=== PATIENT | female | born 1960 | race Hispanic/Latino ===

== ENCOUNTER 2024-09-08 12:19 | Inpatient (IN) | payer BC ==
[~2024-09-08] VITALS: Ht 160 cm; Wt 67.0 kg
[2024-09-08 12:37] LABS: BASOPHILS # (AUTO) 0.06 K/uL (0.00-0.20); BASOPHILS % (AUTO) 0.5 % (0.0-5.0); EOSINOPHILS % (AUTO) 1.8 % (0.0-8.0); HEMATOCRIT 35.3 % (36-48); IMMATURE GRANULOCYTE ABSOLUTE 0.05 K/uL (0-1); LYMPHOCYTES % (AUTO) 17.5 % (21.0-51.0); MEAN CORPUSCULAR HEMOGLOBIN 30.2 pg (27.0-33.0); MEAN CORPUSCULAR VOLUME 88.7 fL (79-99); MONOCYTES # (AUTO) 0.8 K/uL (0.1-1.0); MONOCYTES % (AUTO) 6.8 % (3.0-13.0); NEUTROPHILS # (AUTO) 8.1 K/uL (1.8-7.7); PLATELET COUNT (AUTO) 216 K/uL (130-400); RED BLOOD CELL COUNT(AUTO) 3.98 MIL/uL (4.00-5.50); RED CELL DISTRIBUTION WIDTH 11.7 % (11.0-15.5); WHITE BLOOD COUNT (AUTO) 11.2 K/uL (4.8-10.8)
--- NOTE | 2024-09-08 12:40 | ERN ---
ED Note History of Present Illness Stated Complaint: CP Chief Complaint: Chest Pain Time Seen by MD: 12:21 Dictation: This 63-year-old female reports onset this morning of severe left-sided body pain including the left arm, the left chest in the left abdomen especially in t he left lower quadrant all of which she attributes to constipation. She reports difficulty with bowel movements for several days and took two laxatives last night. She woke this morning with some pain that worsened quite a bit after she attempted to go to the bathroom shortly before coming in. She arrived at triage very uncomfortable clutching her left arm and clutching abdomen. She had difficulty giving an accurate history initially. She denies nausea vomiting, fall, diarrhea, blood in the stool, shortness of breath, fever or urinary symptoms. The patient denies cigarettes, alcohol and recreational drugs. She is here with her spouse Allergies: Coded Allergies: No Known Drug Allergies (Unverified Allergy, Unknown, 09/08/24) Past Medical History Past Medical History: Hypertension Surgical History: None RN Note Reviewed/Agreed w/PFSH: Yes Review of System Dictation All pertinent systems reviewed, negative except as documented in the HPI The ROS is obtained from patient GENERAL/CONSTITUTIONAL: Negative except as documented in HPI. ENT: Negative except as documented in HPI. CARDIOVASCULAR: Negative except as documented in HPI. RESPIRATORY: Negative except as documented in HPI. GASTROINTESTINAL: Negative except as documented in HPI. GENITOURINARY: Negative except as documented in HPI. MUSCULOSKELETAL: Negative except as documented in HPI. SKIN: Negative except as documented in HPI. NEUROLOGIC: Negative except as documented in HPI. Initial Vital Sign VS Vital Signs Date Time Temp Pulse Resp B/P (MAP) Pulse Ox O2 Delivery O2 Flow Rate FiO2 09/08/24 12:21 98 38 201/66 100 Room Air 0 09/08/24 13:00 98.2 21 Physical Exam Dictation VITAL SIGNS: note is made of triage vital signs CONSTITUTIONAL: This is an extremely anxious woman who is clutching her left arm and seems very weak with limited movement due to primary abdominal pain. She is awake, alert, and appropriately interactive. HEAD: Normocephalic, Atraumatic. EYES: Periorbital areas with no swelling, redness, or edema. Lids and lashes are normal. Conjunctival injection is absent. Sclera anicteric. Pupils equal, round, reactive to light. ENT: No nasal discharge noted. Posterior pharynx is without exudate, redness, swelling, masses, or evidence of obstruction. Uvula midline. Mucous membranes moist. NECK: Trachea midline, no masses palpated, and no cervical lymphadenopathy. No swelling. Supple, full range of motion without nuchal rigidity. No vertebral point tenderness. No meningismus. CHEST/AXILLA: Normal chest wall appearance and motion. No tenderness. No crepitus. CV: Normal rate, regular rhythm. No murmur. No edema. Patient's carotids and radials are strong and equal. RESPIRATORY:Respiratory rate is normal. Bilateral equal breath sounds with good airflow. Normal breath sounds are noted. No rales, rhonchi or wheezes noted. No increased work of breathing, no retractions. ABDOMEN: Inspection normal. No distention is appreciated. Bowel sounds are normal. No mass or organomegaly is appreciated. There is left sided tenderness. No rebound. No rigidity. No voluntary or involuntary guarding. BACK: Inspection is normal. No midline tenderness is appreciated. The patient appears comfortable when moving. : No CVA tenderness or bladder tenderness. SKIN: Warm, dry, with normal turgor. Capillary refill less than 3 seconds. Normal color.No rash. No cellulitis or abscess. No evidence of acute injury. MS/Extremity: There is no calf tenderness. The patient reports severe pain in the left arm with movement and palpation. She has limiting range of motion voluntarily. There are no deformities. NEURO: Awake and alert, lucid. Facies symmetric and speech is clear. Motor strength 5/5 in all extremities. Sensory grossly intact. PSYCH: Patient is very anxious on initial presentation but appropriately attentive and cooperative without evidence of hallucination. Results (Laboratory/Radiology) Laboratory/Radiology Laboratory Tests Test 09/08/24 12:25 09/08/24 13:30 09/08/24 13:55 White Blood Count 11.2 K/uL (4.8-10.8) H Red Blood Count 3.98 MIL/uL (4.00-5.50) L Hemoglobin 12.0 g/dL (12.0-16.0) Hematocrit 35.3 % (36-48) L Mean Corpuscular Volume 88.7 fL (79-99) Mean Corpuscular Hemoglobin 30.2 pg (27.0-33.0) Mean Corpuscular Hemoglobin Concent 34.0 g/dL (32.0-36.0) Red Cell Distribution Width 11.7 % (11.0-15.5) Platelet Count 216 K/uL (130-400) Mean Platelet Volume 12.1 fL (7.5-10.5) H Immature Granulocyte % (Auto) 0.4 % (0-1) Neutrophils (%) (Auto) 73.0 % (40.0-77.0) Lymphocytes (%) (Auto) 17.5 % (21.0-51.0) L Monocytes (%) (Auto) 6.8 % (3.0-13.0) Eosinophils (%) (Auto) 1.8 % (0.0-8.0) Basophils (%) (Auto) 0.5 % (0.0-5.0) Neutrophils # (Auto) 8.1 K/uL (1.8-7.7) H Lymphocytes # (Auto) 2.0 K/uL (1.0-4.8) Monocytes # (Auto) 0.8 K/uL (0.1-1.0) Eosinophils # (Auto) 0.20 K/uL (0.00-0.70) Basophils # (Auto) 0.06 K/uL (0.00-0.20) Absolute Immature Granulocyte (auto 0.05 K/uL (0-1) Nucleated Red Blood Cells 0.0 % (0.0-0.19) Sodium Level 142 mmol/L (136-145) Potassium Level 4.7 mmol/L (3.5-5.1) Chloride Level 105 mmol/L (101-111) Carbon Dioxide Level 27 mmol/L (21-32) Blood Urea Nitrogen 26 mg/dL (7-18) H Creatinine 1.2 mg/dL (0.5-1.0) H Glomerular Filtration Rate Calc 52 mL/min (>90) Random Glucose 183 mg/dL (70-105) H Total Calcium 10.0 mg/dL (8.5-10.1) Total Creatine Kinase 65 U/L (21-232) Troponin I High Sensitivity 6 ng/L (4-50) B-Type Natriuretic Peptide 22 pg/mL (0-100) Stool Occult Blood NEGATIVE (NEGATIVE) Urine Color YELLOW (YELLOW) Urine Appearance CLEAR (CLEAR) Urine pH 6.0 (5.0-8.0) Urine Specific [place] 1.016 (1.001-1.031) Urine Protein 20 mg/dL (NEGATIVE) H Urine Glucose (UA) NEGATIVE mg/dL (NEGATIVE) Urine Ketones 5 mg/dL (NEGATIVE) H Urine Occult Blood NEGATIVE (NEGATIVE) Urine Nitrate NEGATIVE (NEGATIVE) Urine Bilirubin NEGATIVE mg/dL (NEGATIVE) Urine Urobilinogen 0.2 mg/dL (0.2-1.0) Urine Leukocyte Esterase NEGATIVE [place]/uL Urine RBC 2-5 /HPF (0-1) H Urine WBC 2-5 /HPF (0-1) H Urine Squamous Epithelial Cells RARE /HPF (0-2) Urine Bacteria None /HPF (None Seen) Urine Hyaline Casts 2-5 /LPF (0-1 /LPF) H Labs Reviewed?: Yes EKG Comment: Time reviewed: 12:24 p.m. EKG number; 1 Rate and rhythm: Sinus rhythm at 91 beats per minute [place]:normal Morphology:Normal DE interval: normal QT interval: normal ST/Twaves: Diffuse nonspecific STT wave changes Impression: normal sinus rhythm without STEMI or ectopy Comparison EKG: none EKG INTERPRETATION by Dr. Steve Bolden ED Course ED Course Orders Procedure Category Date Status Time Vital Signs Per CPOE 09/08/24 Transmitted Routine 12:25 B-Type Natriuretic LAB 09/08/24 Complete Peptide 12:25 Chest 1vw RAD 09/08/24 Resulted 12:25 12 Lead Ekg Tracing- EKG 09/08/24 Resulted Technical 12:25 Oxygen By Nc/Pulse Ox CPOE 09/08/24 Transmitted 12:25 Maintain Iv CPOE 09/08/24 Transmitted 12:25 Iv Insertion CPOE 09/08/24 Transmitted 12:25 Cardiac Monitoring CPOE 09/08/24 Transmitted 12:25 Pulse Oximetry With CPOE 09/08/24 Transmitted Vs And Prn 12:25 Cbc With Differential LAB 09/08/24 Complete 12:25 Activity: Br W/Brp CPOE 09/08/24 Transmitted With Assist 12:25 Creatine Kinase, Total LAB 09/08/24 Complete 12:25 Urinalysis Profile LAB 09/08/24 Complete 12:25 Troponin Poc Order LAB 09/08/24 Complete Only 12:25 Bedside Troponin-I LAB.ER 09/08/24 In Process (Poc) 12:25 Basic Metabolic Panel LAB 09/08/24 Complete 12:25 Troponin I High LAB 09/08/24 Complete Sensitivity 12:49 Morphine 4mg Syg PHA 09/08/24 Complete (Morphine 4mg Syg) 13:00 Bisacodyl (Dulcolax) PHA 09/08/24 Complete 13:30 Ct Abdomen/Pelvis W/O CT 09/08/24 Resulted Contrast 13:50 Occult Blood Stool LAB 09/08/24 Complete Single Only 14:13 Fleet Order CPOE 09/08/24 Transmitted 14:54 Ct Head/Brain W/O CT 09/08/24 Resulted Contrast 15:52 Current Medications Medications (Trade) Dose Ordered Sig/[place] Route PRN Reason Start Time Stop Time Status Last Admin Dose Admin Bisacodyl (DulcoLAX) 10 mg ONCE ONCE RC 09/08/24 13:30 09/08/24 13:31 DC 09/08/24 13:38 Morphine Sulfate (morPHINE 4MG SYG) 4 mg ONCE ONCE IVP 09/08/24 13:00 09/08/24 13:01 DC 09/08/24 13:03 Vital Signs Date Time Temp Pulse Resp B/P (MAP) Pulse Ox O2 Delivery O2 Flow Rate FiO2 09/08/24 14:28 98.1 78 16 164/72 100 Room Air* 0 21 09/08/24 13:00 98.2 80 16 167/63 98 Room Air* 0 21 09/08/24 12:21 98 38 201/66 100 Room Air 0 HEART Score Response (Comments) Value History: Low suspicion (0) 0 EKG: Repolarization changes 1 Age: 45-65yrs (+1) 1 Risk Factors: 1-2 risk factors (+1) 1 Initial Troponin: Normal limit (0) 0 HEART Score Risk: Low Risk for MACE (1-3) Total 3 Medical Decision Making MDM INITIAL IMPRESSION Initial history and physical concerning for constipation with an unusual presentation of severe left-sided pain including the arm and leg Contributing medical problems: Hypertension I have reviewed the triage nursing notes and vital signs. The patient is afebrile with acceptable oxygen saturation, heart rate and blood pressure. Initial plan: Pain control, laboratory and radiographic evaluation DATA REVIEW I have reviewed additional NN, repeat VS, and monitoring where indicated. Heart rate, blood pressure, and O2 saturation are acceptable. [place] diagnostic results: There was mild leukocytosis. There was mild renal insufficiency. CT scan shows abundant stool Other independent historian: none Review of external data: None. ED COURSE Interventions: The patient has received pain medication and a Dulcolax suppository. Reassessment: Patient is much more comfortable but no bowel movement as yet. Plan to move to two fleets enemas Care is transferred to Dr. Meléndez at 3:00 p.m. for final disposition. DX & DISP Disposition: Inpatient Departure Impression: Primary Impression: Chest pain Additional Impression: Fecal impaction Condition: Stable STEVE BOLDEN MD Sep 08, 2024 12:40 NILTON MELÉNDEZ MD Sep 08, 2024 17:20
[2024-09-08 12:45] LABS: CREATININE 1.2 mg/dL (0.5-1.0); POTASSIUM 4.7 mmol/L (3.5-5.1)
[2024-09-08] MEDS: morPHINE 4 MG SYG IVP ONE (13:03)
--- NOTE | 2024-09-08 13:08 | HMCIMG ---
Exam Type: CHEST 1VW Clinical Information: CHEST PAIN Comparison: None Findings: The lungs are clear of infiltrates. The heart is normal in size. The bony and soft tissue structures of the chest are unremarkable. Impression: Clear lungs.
[2024-09-08 13:28] LABS: B-TYPE NATRIURETIC PEPTIDE 22 pg/mL (0-100)
--- NOTE | 2024-09-08 13:37 | EKG ---
[facility] Test Date: 2024-09-08 Test Time: 12:24:40 Pat Name: GILBERT WHITEHEAD Department: [facility] Room: Gender: F Tow Operator: [id number] : 1960 Requested By: STEVE BOLDEN Order Number: [id number] Reading MD: Marcus Ford Measurements Intervals [place] Rate: 91 P: 73 ME: 121 QRS: 65 QRSD: 91 T: 0 QT: 323 QTc: 398 Interpretive Statements Sinus rhythm Nonspecific repol abnormality, diffuse leads No previous ECG available for comparison Electronically Signed On 09-08-2024 14:10:21 FREIGHT UNLOADER by Marcus Ford Please click the below link to view image of tracing.
[2024-09-08] MEDS: BisaCODYL 10 MG SUPP.RECT RC ONE (13:38)
[2024-09-08 14:24] LABS: APPEARANCE,URINE CLEAR (CLEAR); BILIRUBIN,URINE NEGATIVE (NEGATIVE); COLOR,URINE YELLOW (YELLOW); GLUCOSE, URINE (UA) NEGATIVE (NEGATIVE); KETONES,URINE 5 mg/dL (NEGATIVE); LEUKOCYTE ESTERASE ,URINE NEGATIVE Leu/uL (NEGATIVE); NITRATE,URINE NEGATIVE (NEGATIVE); OCCULT BLOOD,URINE NEGATIVE (NEGATIVE); PROTEIN,URINE 20 mg/dL (NEGATIVE); UROBILINOGEN,URINE 0.2 mg/dL (0.2-1.0)
[2024-09-08 14:26] LABS: ADD UA MICROSCOPIC YES
[2024-09-08 14:42] LABS: MUCUS,URINE RARE LPF (None Seen); SQUAMOUS EPITHELIAL CELL,UR RARE /HPF (0-2)
--- NOTE | 2024-09-08 14:48 | HMCIMG ---
Exam Type: CT ABDOMEN/PELVIS W/O CONTRAST Clinical Information: severe llq p Comparison: None CT Dose Index (CTDI): 10.20 mGy Dose Length Product (DLP): 530.00 total mGy-cm PROTOCOL: Routine noncontrast helical scanning of the abdomen and pelvis was performed at 5mm collimation. Findings: Nonobstructing right nephrolithiasis. Kidneys otherwise unremarkable. The lung bases are clear. Right middle lobe benign calcified granuloma seen. The stomach is unremarkable. It shows no wall thickening. No gross ulceration is seen. It is not overly distended. There are no surrounding inflammatory changes. No wall lesions are identified to suggest cancer. The spleen is unremarkable. It is not enlarged. The pancreas shows normal anatomy. It is not fatty replaced. It shows no lesions. The pancreatic duct is not dilated. The gallbladder is unremarkable. It shows no cholelithiasis. The gallbladder wall is normal in thickness. There is no pericholecystic fluid. The is no acute or chronic inflammation noted. The adrenal glands are unremarkable. There is no enlargement. No lesions are noted. The liver is unremarkable. It shows no focal masses. The appendix is unremarkable. It shows no evidence of inflammation. No appendicolith is seen. The small bowel is unremarkable. There is no evidence of dilatation to suggest obstruction. No evidence of adynamic ileus is seen. There is no small bowel wall thickening to suggest enteritis. Abundant fecal matter is noted throughout the colon consistent with constipation. The urinary bladder is unremarkable. There is no wall thickening to suggest tumor or inflammation. There are no intraluminal calculi. There are no diverticula. There is no evidence of chronic bladder outlet obstruction. There is no evidence of urinary bladder distention to suggest urinary retention. The other pelvic structures are unremarkable. The bony and vascular structures are unremarkable for the patient's age. IMPRESSION: Constipation. This study was performed using dose reduction techniques to include automated exposure control and/or adjustment of the mA and/or kV according to patient size.
--- NOTE | 2024-09-08 16:56 | HMCIMG ---
CT HEAD/BRAIN W/O CONTRAST INDICATION: TIA TECHNIQUE: CT HEAD/BRAIN W/O CONTRAST. CT was performed with one or more of the following dose reduction techniques: Automated exposure control, adjustment of the mA and/or kV according to the patient's size, or use of the iterative reconstruction technique. Comparison: None FINDINGS: The ventricles and extra ventricular CSF spaces are within normal limits. No mass effect, midline shift or herniation. No extra axial collection. No acute intracranial bleed. The visualized paranasal sinuses and mastoid air cells are normally aerated. IMPRESSION: No acute intracranial findings.
[2024-09-08] MEDS ORDERED: ketOROlac 15MG/ML VIAL (15MG/ML) IV PRN (18:00)
[2024-09-08] MEDS ORDERED: acetaMINOPHEN 500 MG TABLET PO PRN (18:00)
--- NOTE | 2024-09-08 18:32 | NUR ---
TWO FLEET ENEMAS ADMINSTERED PER PROVIDER ORDER. PATIENT TOLERATED PROCEDURE WELL. PATIENT LARGE BM ACHIEVED.
[2024-09-08] MEDS: 0.9%NACL 1000ML 1,000 ML IV SCH (18:35)
[2024-09-08] MEDS: CEFTRIAXONE 2GM VIAL IVPB SCH (18:35)
--- NOTE | 2024-09-08 19:06 | HP ---
[facility] Date of Service: Sep 08, 2024 Time of Service: 18:51 HISTORY OF PRESENT ILLNESS: DATE OF SERVICE: 09/08/2024 This is a 63-year-old female past medical history of hypertension, diabetes mellitus type 2 who presented to the hospital secondary to abdominal pain. Patient states she has had episodes of constipation with small bowel movement yesterday. She knows states she has not had regular bowel movements at home. She denies any nausea, vomiting, shortness of breath, fever, chills. She noted that she was having pain in the left upper extremity and left lower extremity. She is not fully able to mobilize her upper or lower extremity. She was clutching her left arm when seen at bedside. She states normally she is able to walk independently and denies using any walker or cane. She denied any falls, syncopal episode. Furthermore she complained of midsternal chest pain that would radiate towards her left arm and left lower extremity. Her pain improved after she received morphine in the ED. She denied any headaches, upper or lower extremity paresthesias. She noted bilateral upper extremity tremors which is something new for her. Noted her symptoms started around 10 in the morning. Additionally she states around one week ago she was taking care of her brother who has been sick in the hospital. She does walk outside and does endorse mosquito bites. Labs were notable for white count of 11.2, hemoglobin was 12.0, platelet count was 216k, sodium was 142, potassium was 4.7, creatinine was 1.2, blood glucose was 183, troponin was negative x1 Patient underwent a head CT which was negative. Additionally she underwent a CT abdomen pelvis which showed findings concerning for fecal impaction with constipation. Patient received Dulcolax in the ED and she was ordered fleets enema in the ED. Neurology was consulted the ED by ED provider who was agreeable to seeing the patient. REVIEW OF SYSTEMS CONSTITUTIONAL: Denies fevers, chills, or night sweats. No unintentional weight loss reported. NEUROLOGICAL: Denies headache, amaurosis fugax, motor weakness, sensory deficit, vertigo/spinning sensation, gait abnormalities, or tremors. ENT: No hearing loss, otalgia, otorrhea, rhinitis, rhinorrhea, hoarseness, or sore throat. CARDIOVASCULAR: Positive for chest pain. Denied any shortness of breath, dyspnea on exertion, orthopnea PULMONARY: Denies any shortness of breath, cough, phlegm/sputum, hemoptysis, pleuritic chest pain. GASTROINTESTINAL: Denies any type of dysphagia to either liquids or solids. Denies nausea, vomiting, pyrosis, early satiety, abdominal pain, diarrhea, constipation, or changes in stool consistency or caliber. Denies coffee-ground emesis, hematemesis, hematochezia, or melanotic stools. GENITOURINARY: Denies frequency, urgency, nocturia, hematuria or incontinence (Storage/Irritative symptoms.) Low urinary stream, straining to void, urinary intermittency or hesitancy, splitting of the voiding stream, terminal dribbling. ENDOCRINOLOGIC: Denies polyuria, polydipsia, polyphagia or heat/cold intolerances. HEMATOLOGIC: Denies thrombophilia/previous clots, or coagulopathy/bleeding disorders. ONCOLOGIC: Denies personal history of malignancy. DERMATOLOGIC: Denies rashes or pruritus. PSYCHIATRIC: Denies any suicidal or homicidal ideation. Denies hallucinations. PAST MEDICAL HISTORY: Hypertension, diabetes mellitus type PAST SURGICAL HISTORY: Denied any surgical history PAST SOCIAL HISTORY: Denied smoking, alcohol, drug use FAMILY HISTORY: Denied any pertinent family history Coded Allergies: No Known Drug Allergies (Unverified Allergy, Unknown, 09/08/24) PHYSICAL EXAM GENERAL APPEARANCE: The patient is awake, alert, and oriented, in no acute cardiopulmonary distress. NEUROLOGICAL: Cranial nerves II-XII grossly intact. Motor strength is 3/5 in the left upper extremity, left lower extremity. Patient does slowly extend her left arm with mild rigidity. Upper strength in the right upper and lower extremities 4/5. Sensory is intact. She has bilateral tremors noted in the upper extremity HEENT: Face is symmetric. Pupils are equal and reactive. Extraocular movements are intact. NECK: Supple. No JVD. No thyromegaly. No submental, submandibular, pre- /postauricular, occipital or supraclavicular lymphadenopathy. CHEST: Normal chest expansion. No Telemetry. LUNGS: Absence of any rales, rhonchi or any wheezing. CARDIOVASCULAR: Regular. S1 and S2 normal. No appreciable rubs, murmurs or gallops. ABDOMEN: Soft, nontender, and nondistended. There is no rebound, voluntary guarding, or rigidity. : Deferred. No [place]. EXTREMITIES: Non-edematous and not cyanotic. No clubbing. Good capillary refill. SKIN: No skin breakdown. Vital Sign (Last 24 Hours) 09/08/24 18:10 Temp 98.1 Pulse 78 Resp 16 B/P (MAP) 172/60 Pulse Ox 100 O2 Delivery Room Air* O2 Flow Rate 0 FiO2 21 LABS: Laboratory: Test 09/08/24 13:55 09/08/24 13:30 09/08/24 12:25 Range/Units Urine Color YELLOW YELLOW Urine Appearance CLEAR CLEAR Urine pH 6.0 5.0-8.0 Urine Specific [place] 1.016 1.001-1.031 Urine Protein 20 H NEGATIVE mg/dL Urine Glucose (UA) NEGATIVE NEGATIVE mg/dL Urine Ketones 5 H NEGATIVE mg/dL Urine Occult Blood NEGATIVE NEGATIVE Urine Nitrate NEGATIVE NEGATIVE Urine Bilirubin NEGATIVE NEGATIVE mg/dL Urine Urobilinogen 0.2 0.2-1.0 mg/dL Urine Leukocyte Esterase NEGATIVE NEGATIVE Nakita/uL Urine RBC 2-5 H 0-1 /HPF Urine WBC 2-5 H 0-1 /HPF Urine Squamous Epithelial Cells RARE 0-2 /HPF Urine Bacteria None None Seen /HPF Urine Hyaline Casts 2-5 H 0-1 /LPF /LPF Stool Occult Blood NEGATIVE NEGATIVE White Blood Count 11.2 H 4.8-10.8 K/uL Red Blood Count 3.98 L 4.00-5.50 MIL/uL Hemoglobin 12.0 12.0-16.0 g/dL Hematocrit 35.3 L 36-48 % Mean Corpuscular Volume 88.7 79-99 fL Mean Corpuscular Hemoglobin 30.2 27.0-33.0 pg Mean Corpuscular Hemoglobin Concent 34.0 32.0-36.0 g/dL Red Cell Distribution Width 11.7 11.0-15.5 % Platelet Count 216 130-400 K/uL Mean Platelet Volume 12.1 H 7.5-10.5 fL Immature Granulocyte % (Auto) 0.4 0-1 % Neutrophils (%) (Auto) 73.0 40.0-77.0 % Lymphocytes (%) (Auto) 17.5 L 21.0-51.0 % Monocytes (%) (Auto) 6.8 3.0-13.0 % Eosinophils (%) (Auto) 1.8 0.0-8.0 % Basophils (%) (Auto) 0.5 0.0-5.0 % Neutrophils # (Auto) 8.1 H 1.8-7.7 K/uL Lymphocytes # (Auto) 2.0 1.0-4.8 K/uL Monocytes # (Auto) 0.8 0.1-1.0 K/uL Eosinophils # (Auto) 0.20 0.00-0.70 K/uL Basophils # (Auto) 0.06 0.00-0.20 K/uL Absolute Immature Granulocyte (auto 0.05 0-1 K/uL Nucleated Red Blood Cells 0.0 0.0-0.19 % Sodium Level 142 136-145 mmol/L Potassium Level 4.7 3.5-5.1 mmol/L Chloride Level 105 101-111 mmol/L Carbon Dioxide Level 27 21-32 mmol/L Blood Urea Nitrogen 26 H 7-18 mg/dL Creatinine 1.2 H 0.5-1.0 mg/dL Glomerular Filtration Rate Calc 52 >90 mL/min Random Glucose 183 H 70-105 mg/dL Total Calcium 10.0 8.5-10.1 mg/dL Total Creatine Kinase 65 21-232 U/L Troponin I High Sensitivity 6 4-50 ng/L B-Type Natriuretic Peptide 22 0-100 pg/mL Current Medications Medications (Trade) Dose Ordered Sig/Preston Route PRN Reason Start Time Stop Time Status Last Admin Dose Admin Acetaminophen (TYLenol 500MG TAB) 500 mg Q6H PRN PO MILD PAIN (1-3) 09/08/24 18:00 10/08/24 17:59 Ceftriaxone Sodium (Rocephin 2gm Inj) 2 gm Q24H IVPB 09/08/24 18:00 09/18/24 17:59 09/08/24 18:35 2 GM Famotidine (Pepcid 20mg Vial) 20 mg Q24H IV 09/08/24 21:00 10/08/24 20:59 Ketorolac Tromethamine (toRADol) 15 mg Q6H PRN IV MODERATE PAIN (4-6) 09/08/24 18:00 09/13/24 17:59 Sodium Chloride 1,000 ml @ 125 mls/hr Q8H IV 09/08/24 18:00 10/08/24 17:59 09/08/24 18:35 125 MLS/HR DIAGNOSTICS / RADIOLOGY: CT head was negative ASSESSMENT: Constipation with fecal impaction POA Bilateral upper extremity tremors Left upper and lower extremity weakness POA type 2 with associated hyperglycemia Chest pain ACS rule out Debility Mild Leukocytosis Acute kidney injury Diabetes mellitus Hypertension PLAN: - patient to be admitted to PCCU -in reference to fecal impaction with constipation. Fleets enema was ordered in the ED. We will follow up on patient. Start patient on Rocephin. Obtain blood cultures. -in reference to bilateral extremity tremors with associated left upper and lower extremity weakness. Concern for neurological versus infectious versus metabolic etiology. We will keep her on antibiotics and start gentle hydration with NS. We will request Neurology consultation. Obtain a brain MRI to rule out stroke. Also obtain a carotid Doppler -in reference to chest pain. Obtain troponins q.6 hours to rule out ACS. Obtain echocardiogram. -check TSH, A1c, procalcitonin, CRP -obtain home medications which will be reconciled once available -further orders per hospitalization course. Advanced Care Planning Which of the following were discussed: Hospice care: Yes __ No _x_ Therapeutic options: Yes __ No __ Advance directives: Yes __ No __ Other discussions: Pt is full code Discussed with who?: patient (Patient, family or surrogates) Voluntary nature of this service was explained to the patient? Yes _x_ No __ Amount of time spent: 30 minutes MARQUITA Oropeza MD, MD Sep 08, 2024 19:05
[2024-09-08 19:30] LABS: HEMOGLOBIN A1C 7.5 % (4.0-6.0)
--- NOTE | 2024-09-08 19:52 | HMCIMG ---
SHOULDER COMP 2+VWS LT INDICATION: Pain TECHNIQUE: SHOULDER COMP 2+VWS LT. FINDINGS/IMPRESSION: No displaced fracture or dislocation is seen. Correlate clinically. There is mild soft tissue swelling Mild degenerative changes are seen.
[2024-09-08 20:16] LABS: THYROID STIMULATING HORMONE 0.84 uIU/mL (0.36-3.74)
--- NOTE | 2024-09-08 20:43 | HMCIMG ---
US CAROTID DUPLEX HISTORY: assess for carotid stenosis TECHNIQUE: Real time color doppler ultrasound examination of both carotid systems was performed using B mode, color flow and spectral analysis. FINDINGS: Right Extracranial Circulation: CCA peak systolic velocity 72 cm/sec ICA peak systolic velocity of 136 cm/sec ECA peak systolic velocity of 173 cm/sec Ratio ICA/CCA = 1.9 Vertebral artery 63 cm/sec Left Extracranial Circulation: CCA peak systolic velocity 87 cm/sec ICA peak systolic velocity of 85 cm/sec ECA peak systolic velocity of 123 cm/sec Ratio ICA/CCA = 1 Vertebral artery 74 cm/sec The vertebral arteries demonstrate antegrade flow. IMPRESSION: 50-69% stenosis in the right ICA.
--- NOTE | 2024-09-08 21:11 | HMCIMG ---
MR BRAIN WO CON HISTORY: Please rule out stroke TECHNIQUE: Multiplanar multisequence MRI of the brain was performed without contrast. FINDINGS: No restricted diffusion seen to suggest acute infarct. Cerebral atrophy seen. Nonspecific periventricular and subcortical white matters changes are noted which may represent small vessel ischemic disease, demyelination, inflammation or a combination of these factors. No midline shift or herniation. No extra axial collection. The visualized paranasal sinuses and mastoid air cells are normally aerated. IMPRESSION: Mild cerebral atrophy. No acute intracranial bleed is seen. Scattered nonspecific white matter changes
[2024-09-08] MEDS: FAMOTIDINE 20MG VIAL IV SCH (21:12)
[2024-09-08 22:55] LABS: AMPHET/METH SCREEN,URINE NEGATIVE (NEGATIVE); BARBITURATE SCREEN, URINE NEGATIVE (NEGATIVE); BENZODIAZEPINES SCREEN,URINE NEGATIVE (NEGATIVE); CANNABINOID SCREEN,URINE NEGATIVE (NEGATIVE); COCAINE SCREEN,URINE NEGATIVE (NEGATIVE); OPIATE SCREEN,URINE NEGATIVE (NEGATIVE); PHENCYCLIDINE SCREEN,URINE NEGATIVE (NEGATIVE)
[2024-09-08 23:22] VITALS: BP 151/66; PULSE 91; RESP 18; TEMP 98
[2024-09-09] VITALS (7 sets, daily range): BP systolic 146–155; BP diastolic 69–75; PULSE 77–88; RESP 18–20; TEMP 98–98.5; O2SAT 96–99
[2024-09-09] MEDS ORDERED: ROSU10TA72 PO (00:02)
[2024-09-09] MEDS ORDERED: METF-444 PO (00:02)
[2024-09-09] MEDS ORDERED: LOSA50TA64 PO (00:02)
[2024-09-09 06:43] LABS: BASOPHILS # (AUTO) 0.05 K/uL (0.00-0.20); BASOPHILS % (AUTO) 0.4 % (0.0-5.0); EOSINOPHILS # (AUTO) 0.12 K/uL (0.00-0.70); HEMATOCRIT 31.8 % (36-48); IMMATURE GRANULOCYTE ABSOLUTE 0.03 K/uL (0-1); LYMPHOCYTES # (AUTO) 2.7 K/uL (1.0-4.8); LYMPHOCYTES % (AUTO) 22.1 % (21.0-51.0); MEAN CORPUSCULAR HEMOGLOBIN 29.9 pg (27.0-33.0); MEAN CORPUSCULAR HGB CONC 32.4 g/dL (32.0-36.0); MEAN CORPUSCULAR VOLUME 92.4 fL (79-99); MONOCYTES # (AUTO) 1.1 K/uL (0.1-1.0); MONOCYTES % (AUTO) 8.7 % (3.0-13.0); NEUTROPHILS # (AUTO) 8.1 K/uL (1.8-7.7); NEUTROPHILS % (AUTO) 67.6 % (40.0-77.0); PLATELET COUNT (AUTO) 187 K/uL (130-400); RED BLOOD CELL COUNT(AUTO) 3.44 MIL/uL (4.00-5.50); RED CELL DISTRIBUTION WIDTH 11.9 % (11.0-15.5)
[2024-09-09 07:05] LABS: CREATININE 0.9 mg/dL (0.5-1.0)
--- NOTE | 2024-09-09 14:23 | CONS ---
CONSULTATION NOTE Date of Service: Sep 09, 2024 Reason for Consultation: eval of left UE/LE weakness Requesting Physician: Hospitalist HISTORY OF PRESENT ILLNESS: This is a very nice 63 years old right-handed lady that has a past medical histo ry remarkable for dyslipidemia, diabetes mellitus type 2, obesity who was admitted for evaluation and management of chest pain in association with left upper and lower extremity pain and stiffness. The patient states being in her usual state of health until yesterday when the patient was having a left lower extremity and left upper extremity pain in association with chest pain around the same time she noticed that she was having left-sided weakness. The patient states coming to the emergency room and being evaluated by the emergency room physician. She was out of the window for possible stroke and I spoke directly with Dr. Mak emergency room physician who thought this was mostly related to pain rather than a TIA and for that reason the patient was admitted and I was consulted for further left-sided weakness in the left upper and lower extremity. MRI of the brain without contrast was negative for stroke. CTA head and neck with no large vessel occlusion or significant stenosis. The patient's symptoms have improved but not completely resolved. No other complaints at this time. REVIEW OF SYSTEMS CONSTITUTIONAL: Denies fever, chills, or fatigue. HEAD/FACE: No signs of trauma. EENT: Denies eye pain, blurred vision, double vision, or light sensitivity. RESPIRATORY: Denies shortness of breath, cough, wheezing CARDIOVASCULAR: Denies chest pain, palpitation, syncope GASTROINTESTINAL/ABDOMINAL: Denies abdominal pain, constipation, diarrhea, nausea or vomiting GENITOURINARY: Denies dysuria or hematuria. MUSCULOSKELETAL: Denies joint pain, tenderness, or trauma. INTEGUMENTARY: Denies rash or itchiness NEUROLOGICAL/PSYCH: Denies anxiety, depression, heat or cold intolerance. PAST MEDICAL HISTORY: Essential hypertension, dyslipidemia, diabetes mellitus type 2, obesity PAST SURGICAL HISTORY: Noncontributory PAST SOCIAL HISTORY: No tobacco alcohol recreational drug abuse FAMILY HISTORY: No family history of stroke or seizures Coded Allergies: No Known Drug Allergies (Unverified Allergy, Unknown, 09/08/24) PHYSICAL EXAM Mental status: The patient is alert, attentive, and oriented. Speech is clear and fluent with good repetition, comprehension, and naming. Pt recalls 3/3 objects at 5 minutes. Cranial nerves: CN II: Visual alcantara are full to confrontation. CN III, IV, : At primary gaze, there is no eye deviation. CN V: Facial sensation is intact to pinprick in all 3 divisions bilaterally. Corneal responses are intact. CN VII: Face is symmetric with normal eye closure and smile. CN VIII: Hearing is normal to rubbing fingers CN IX, X: Palate elevates symmetrically. Phonation is normal. CN XI: Head turning and shoulder shrug are intact CN XII: Tongue is midline with normal movements and no atrophy. Motor: There is no pronator drift of out-stretched arms. Muscle bulk and tone are normal. Strength is full bilaterally. Reflexes: Reflexes are 2+ and symmetric at the biceps, triceps, knees, and ankles. Plantar responses are flexor. Sensory: Light touch, pinprick, position sense, and vibration sense are intact in fingers and toes. Coordination: Rapid alternating movements and fine finger movements are intact. There is no dysmetria on [id number] and [id number]. There are no abnormal or extraneous movements. Romberg is absent. Gait/Stance: Not evaluated Vital Sign (Last 24 Hours) 09/09/24 09/09/24 08:00 12:06 Temp 98.4 Pulse 85 Resp 19 B/P (MAP) 151/75 Pulse Ox 100 O2 Delivery Room Air O2 Flow Rate 0 FiO2 21 LABS: Laboratory: Test 09/09/24 06:24 09/09/24 00:26 09/08/24 18:50 09/08/24 13:55 Range/Units White Blood Count 12.0 H 4.8-10.8 K/uL Red Blood Count 3.44 L 4.00-5.50 MIL/uL Hemoglobin 10.3 L 12.0-16.0 g/dL Hematocrit 31.8 L 36-48 % Mean Corpuscular Volume 92.4 79-99 fL Mean Corpuscular Hemoglobin 29.9 27.0-33.0 pg Mean Corpuscular Hemoglobin Concent 32.4 32.0-36.0 g/dL Red Cell Distribution Width 11.9 11.0-15.5 % Platelet Count 187 130-400 K/uL Mean Platelet Volume 12.2 H 7.5-10.5 fL Immature Granulocyte % (Auto) 0.2 0-1 % Neutrophils (%) (Auto) 67.6 40.0-77.0 % Lymphocytes (%) (Auto) 22.1 21.0-51.0 % Monocytes (%) (Auto) 8.7 3.0-13.0 % Eosinophils (%) (Auto) 1.0 0.0-8.0 % Basophils (%) (Auto) 0.4 0.0-5.0 % Neutrophils # (Auto) 8.1 H 1.8-7.7 K/uL Lymphocytes # (Auto) 2.7 1.0-4.8 K/uL Monocytes # (Auto) 1.1 H 0.1-1.0 K/uL Eosinophils # (Auto) 0.12 0.00-0.70 K/uL Basophils # (Auto) 0.05 0.00-0.20 K/uL Absolute Immature Granulocyte (auto 0.03 0-1 K/uL Nucleated Red Blood Cells 0.0 0.0-0.19 % Sodium Level 144 136-145 mmol/L Potassium Level 4.0 3.5-5.1 mmol/L Chloride Level 108 101-111 mmol/L Carbon Dioxide Level 28 21-32 mmol/L Blood Urea Nitrogen 22 H 7-18 mg/dL Creatinine 0.9 0.5-1.0 mg/dL Glomerular Filtration Rate Calc 73 >90 mL/min Random Glucose 111 H 70-105 mg/dL Total Calcium 8.8 8.5-10.1 mg/dL Troponin I High Sensitivity 8 4-50 ng/L Hemoglobin A1c 7.5 H 4.0-6.0 % Estimated Average Glucose (eAG) 169 H 70-126 mg/dL Total Creatine Kinase 54 21-232 U/L C-Reactive Protein, Quantitative 10.00 H 0.5-3.0 mg/L Procalcitonin < 0.05 L 0.05-0.5 ng/mL Thyroid Stimulating Hormone (TSH) 0.84 0.36-3.74 uIU/mL Urine Color YELLOW YELLOW Urine Appearance CLEAR CLEAR Urine pH 6.0 5.0-8.0 Urine Specific [place] 1.016 1.001-1.031 Urine Protein 20 H NEGATIVE mg/dL Urine Glucose (UA) NEGATIVE NEGATIVE mg/dL Urine Ketones 5 H NEGATIVE mg/dL Urine Occult Blood NEGATIVE NEGATIVE Urine Nitrate NEGATIVE NEGATIVE Urine Bilirubin NEGATIVE NEGATIVE mg/dL Urine Urobilinogen 0.2 0.2-1.0 mg/dL Urine Leukocyte Esterase NEGATIVE NEGATIVE [place]/uL Urine RBC 2-5 H 0-1 /HPF Urine WBC 2-5 H 0-1 /HPF Urine Squamous Epithelial Cells RARE 0-2 /HPF Urine Bacteria None None Seen /HPF Urine Hyaline Casts 2-5 H 0-1 /LPF /LPF Urine Opiates Screen NEGATIVE NEGATIVE Urine Barbiturates Screen NEGATIVE NEGATIVE Urine Phencyclidine Screen NEGATIVE NEGATIVE Urine Amphetamines Screen NEGATIVE NEGATIVE Urine Benzodiazepines Screen NEGATIVE NEGATIVE Urine Cocaine Screen NEGATIVE NEGATIVE Urine Marijuana (THC) Screen NEGATIVE NEGATIVE Test 09/08/24 13:30 09/08/24 12:25 Range/Units Stool Occult Blood NEGATIVE NEGATIVE B-Type Natriuretic Peptide 22 0-100 pg/mL DIAGNOSTICS / RADIOLOGY: MRI of the brain without contrast: Negative for stroke Carotid ultrasound: 50-69% stenosis of the right ICA Transthoracic echocardiogram: Pending ASSESSMENT / PLAN: 1).- transient ischemic attack - for patient she had a sudden onset of left upper or lower extremity weakness in association with pain. Pain is not part of the stroke syndrome but according to the patient after the patient's pain improved she was continued having left upper or lower extremity weakness. Regardless the patient does have multiple risk factors for TIA or stroke and for that reason the patient will benefit from a CTA head and neck. The patient has 50-69% stenosis of the right ICA according to the carotid ultrasound confirmed with a CT angiography. MRI was negative for stroke. Transthoracic echocardiogram is pending. Start the patient on dual antiplatelet therapy with aspirin 81 mg p.o. daily and Plavix 75 mg p.o. daily. The patient was educated on her prognosis and diagnosis. LDL less than 70 hemoglobin A1c goal is% blood pressure goal less than 130/80 mmHg. Thank you for your consultation. JENNIFER ESPINOZA MD Sep 09, 2024 14:23
--- NOTE | 2024-09-09 15:26 | NUR ---
CT ANGIO ON HOLD. MISTY KIM WILL GET CONSENT AND PROPER IV FOR ANGIOGRAM.
--- NOTE | 2024-09-09 16:54 | HMCSR ---
APPROVED REPORT EXAM: Two-dimensional and M-mode echocardiogram with Doppler and color Doppler. INDICATION ICD: Chest Pain 2D Dimensions RVDd3.2 cmLVEF(%)57.9 (>50%)LVED Vol(simp.)91.7 mL IVSd1.0 (0.7-1.1cm)FS(%)30 %LVES Vol(simp.)34.8 mL LVDd4.3 (3.8-5.6cm)LA (2D)2.9 (1.6-4.0cm)LVEF(%, simp.)62 % PWd1.2 (0.7-1.1cm)Ao Root(2D)3.0 (2.0-3.7cm)LA ESV INDEX (4CH)37.60 mL/m2 IVSs1.6 cmLVOT diam2.0 (1.8-2.4cm)LA ESV INDEX (2CH)34.10 mL/m2 LVDs3.0 (2.5-4.0cm)LA ESV INDEX (BP)38.60 mL/m2 PWs1.5 cm M-Mode Dimensions EPSS0.3 cm LA (MM)3.5 (1.6-4.0cm) Ao Root(MM)2.9 (2.0-3.7cm) Aortic Valve AoV VTI0.4 mAo Mean GR7.0 mmHgLVOT VTI0.26 m AL (VMAX)2.1 cm2AVA (VTI) 2.1 cm2 Mitral Valve MV E Vmax73.2 cm/sDECEL Mleh316 ms MV A Vmax74.7 cm/sP 1/2 T51 ms E/A ratio1.0MVA (PHT)4.3 cm2 MR Max PG32 mmHg TDI E/E' Lpexxu44.2E/E' Lateral8.4 Medial E' Peak V7.20 cm/sLateral E' Peak V8.70 cm/s Tricuspid Valve TR Vmax2.2 m/s TR Peak GR19.3 mmHg Left Ventricle The left ventricle is normal size. There is normal LV segmental wall motion. There is normal left pratibha tricular wall thickness. The LVEF is > 55%. The left ventricular diastolic function is normal. Right Ventricle The right ventricle is normal size. The right ventricular systolic function is normal. Atria The left atrium size is normal. The right atrium size is normal. Aortic Valve Aortic valve is trileaflet and opens well. The aortic valve is mildly thickened. No aortic regurgitat ion is present. There is no aortic valvular stenosis. Mitral Valve The mitral valve is normal in structure. There is trace mitral regurgitation. There is no mitral valv e stenosis. Tricuspid Valve The tricuspid valve is normal in structure. There is trace tricuspid valve regurgitation noted. Pulmonic Valve The pulmonary valve is normal in structure. There is no pulmonic valvular regurgitation. Great Vessels The aortic root is normal in size. The IVC is normal in size and collapses >50% with inspiration. Pericardium There is no pericardial effusion. Conclusion The LVEF is > 55%. There is normal left ventricular wall thickness. There is normal LV segmental wall motion. The aortic root is normal in size. There is no pericardial effusion.
--- NOTE | 2024-09-09 17:38 | PN ---
[facility] PROGRESS NOTE Date of Service: Sep 09, 2024 Time of Service: 17:35 SUBJECTIVE: [ Patient is 63-year-old female who was admitted with left-sided weakness along with pain all of which has resolved and was subsequently diagnosed with a TIA. She also had same time had fecal impaction and has since had normal bowel movements after having fleets enemas x2. She has no symptoms today of chest pain or shortness for breath or numbness or tingling or weakness in her body. ] REVIEW OF SYSTEMS CONSTITUTIONAL: Denies fevers, chills, or night sweats. No unintentional weight loss reported. NEUROLOGICAL: Denies headache, amaurosis fugax, motor weakness, sensory deficit, vertigo/spinning sensation, gait abnormalities, or tremors. ENT: No hearing loss, otalgia, otorrhea, rhinitis, rhinorrhea, hoarseness, or sore throat. CARDIOVASCULAR: Denied any shortness of breath, dyspnea on exertion, orthopnea, no chest pain PULMONARY: Denies any shortness of breath, cough, phlegm/sputum, hemoptysis, pleuritic chest pain. GASTROINTESTINAL: Denies any type of dysphagia to either liquids or solids. Denies nausea, vomiting, pyrosis, early satiety, abdominal pain, diarrhea, constipation, or changes in stool consistency or caliber. Denies coffee-ground emesis, hematemesis, hematochezia, or melanotic stools. GENITOURINARY: Denies frequency, urgency, nocturia, hematuria or incontinence (Storage/Irritative symptoms.) Low urinary stream, straining to void, urinary intermittency or hesitancy, splitting of the voiding stream, terminal dribbling. ENDOCRINOLOGIC: Denies polyuria, polydipsia, polyphagia or heat/cold intolerances. HEMATOLOGIC: Denies thrombophilia/previous clots, or coagulopathy/bleeding disorders. ONCOLOGIC: Denies personal history of malignancy. DERMATOLOGIC: Denies rashes or pruritus. PSYCHIATRIC: Denies any suicidal or homicidal ideation. Denies hallucinations. PHYSICAL EXAM GENERAL APPEARANCE: The patient is awake, alert, and oriented, in no acute cardiopulmonary distress. NEUROLOGICAL: Cranial nerves II-XII grossly intact. Motor strength is 3/5 in the left upper extremity, left lower extremity. Patient does slowly extend her left arm with mild rigidity. Upper strength in the right upper and lower extremities 4/5. Sensory is intact. She has bilateral tremors noted in the upper extremity HEENT: Face is symmetric. Pupils are equal and reactive. Extraocular movements are intact. NECK: Supple. No JVD. No thyromegaly. No submental, submandibular, pre- /postauricular, occipital or supraclavicular lymphadenopathy. CHEST: Normal chest expansion. No Telemetry. LUNGS: Absence of any rales, rhonchi or any wheezing. CARDIOVASCULAR: Regular. S1 and S2 normal. No appreciable rubs, murmurs or gallops. ABDOMEN: Soft, nontender, and nondistended. There is no rebound, voluntary guarding, or rigidity. : Deferred. No [place]. EXTREMITIES: Non-edematous and not cyanotic. No clubbing. Good capillary refill. SKIN: No skin breakdown. Vital Signs (last 8hr) Date Time Temp Pulse Resp B/P (MAP) Pulse Ox O2 Delivery O2 Flow Rate FiO2 09/09/24 15:56 98.2 85 19 151/70 96 Room Air 09/09/24 12:06 98.4 85 19 151/75 100 Room Air LABS: Laboratory: Test 09/09/24 06:24 09/09/24 00:26 09/08/24 18:50 09/08/24 13:55 Range/Units White Blood Count 12.0 H 4.8-10.8 K/uL Red Blood Count 3.44 L 4.00-5.50 MIL/uL Hemoglobin 10.3 L 12.0-16.0 g/dL Hematocrit 31.8 L 36-48 % Mean Corpuscular Volume 92.4 79-99 fL Mean Corpuscular Hemoglobin 29.9 27.0-33.0 pg Mean Corpuscular Hemoglobin Concent 32.4 32.0-36.0 g/dL Red Cell Distribution Width 11.9 11.0-15.5 % Platelet Count 187 130-400 K/uL Mean Platelet Volume 12.2 H 7.5-10.5 fL Immature Granulocyte % (Auto) 0.2 0-1 % Neutrophils (%) (Auto) 67.6 40.0-77.0 % Lymphocytes (%) (Auto) 22.1 21.0-51.0 % Monocytes (%) (Auto) 8.7 3.0-13.0 % Eosinophils (%) (Auto) 1.0 0.0-8.0 % Basophils (%) (Auto) 0.4 0.0-5.0 % Neutrophils # (Auto) 8.1 H 1.8-7.7 K/uL Lymphocytes # (Auto) 2.7 1.0-4.8 K/uL Monocytes # (Auto) 1.1 H 0.1-1.0 K/uL Eosinophils # (Auto) 0.12 0.00-0.70 K/uL Basophils # (Auto) 0.05 0.00-0.20 K/uL Absolute Immature Granulocyte (auto 0.03 0-1 K/uL Nucleated Red Blood Cells 0.0 0.0-0.19 % Sodium Level 144 136-145 mmol/L Potassium Level 4.0 3.5-5.1 mmol/L Chloride Level 108 101-111 mmol/L Carbon Dioxide Level 28 21-32 mmol/L Blood Urea Nitrogen 22 H 7-18 mg/dL Creatinine 0.9 0.5-1.0 mg/dL Glomerular Filtration Rate Calc 73 >90 mL/min Random Glucose 111 H 70-105 mg/dL Total Calcium 8.8 8.5-10.1 mg/dL Troponin I High Sensitivity 8 4-50 ng/L Hemoglobin A1c 7.5 H 4.0-6.0 % Estimated Average Glucose (eAG) 169 H 70-126 mg/dL Total Creatine Kinase 54 21-232 U/L C-Reactive Protein, Quantitative 10.00 H 0.5-3.0 mg/L Procalcitonin < 0.05 L 0.05-0.5 ng/mL Thyroid Stimulating Hormone (TSH) 0.84 0.36-3.74 uIU/mL Urine Color YELLOW YELLOW Urine Appearance CLEAR CLEAR Urine pH 6.0 5.0-8.0 Urine Specific [place] 1.016 1.001-1.031 Urine Protein 20 H NEGATIVE mg/dL Urine Glucose (UA) NEGATIVE NEGATIVE mg/dL Urine Ketones 5 H NEGATIVE mg/dL Urine Occult Blood NEGATIVE NEGATIVE Urine Nitrate NEGATIVE NEGATIVE Urine Bilirubin NEGATIVE NEGATIVE mg/dL Urine Urobilinogen 0.2 0.2-1.0 mg/dL Urine Leukocyte Esterase NEGATIVE NEGATIVE Nakita/uL Urine RBC 2-5 H 0-1 /HPF Urine WBC 2-5 H 0-1 /HPF Urine Squamous Epithelial Cells RARE 0-2 /HPF Urine Bacteria None None Seen /HPF Urine Hyaline Casts 2-5 H 0-1 /LPF /LPF Urine Opiates Screen NEGATIVE NEGATIVE Urine Barbiturates Screen NEGATIVE NEGATIVE Urine Phencyclidine Screen NEGATIVE NEGATIVE Urine Amphetamines Screen NEGATIVE NEGATIVE Urine Benzodiazepines Screen NEGATIVE NEGATIVE Urine Cocaine Screen NEGATIVE NEGATIVE Urine Marijuana (THC) Screen NEGATIVE NEGATIVE Test 09/08/24 13:30 09/08/24 12:25 Range/Units Stool Occult Blood NEGATIVE NEGATIVE B-Type Natriuretic Peptide 22 0-100 pg/mL Current Medications Medications (Trade) Dose Ordered Sig/[place] Route PRN Reason Start Time Stop Time Status Last Admin Dose Admin Acetaminophen (TYLenol 500MG TAB) 500 mg Q6H PRN PO MILD PAIN (1-3) 09/08/24 18:00 10/08/24 17:59 Aspirin (Aspirin 81mg Ec Tab) 81 mg DAILY PO 09/10/24 09:00 10/10/24 08:59 Ceftriaxone Sodium (Rocephin 2gm Inj) 2 gm Q24H IVPB 09/08/24 18:00 09/18/24 17:59 09/08/24 18:35 2 GM Clopidogrel Bisulfate (plaVIX 75MG) 75 mg DAILY PO 09/10/24 09:00 10/10/24 08:59 Famotidine (Pepcid 20mg Vial) 20 mg Q24H IV 09/08/24 21:00 10/08/24 20:59 09/08/24 21:12 20 MG Ketorolac Tromethamine (toRADol) 15 mg Q6H PRN IV MODERATE PAIN (4-6) 09/08/24 18:00 09/13/24 17:59 Sodium Chloride 1,000 ml @ 125 mls/hr Q8H IV 09/08/24 18:00 10/08/24 17:59 09/09/24 13:17 125 MLS/HR DIAGNOSTICS / RADIOLOGY: [ ] ASSESSMENT: Constipation with fecal impaction POA Bilateral upper extremity tremors Left upper and lower extremity weakness POA type 2 with associated hyperglycemia Chest pain ACS rule out Debility Mild Leukocytosis Acute kidney injury Diabetes mellitus Hypertension PLAN: - patient will be kept to ensure she is tolerating the dual antiplatelet regimen baby aspirin and Plavix. Continue to monitor clinical status Monitor H&H Constipation resolved Discharge planning for tomorrow in [place] Lawrence MD Sep 09, 2024 17:38
--- NOTE | 2024-09-09 18:05 | NUR ---
INITIAL/DCP HOME Met w pt and spouse this afternoon to discuss dcp. Pt admitted w fecal impaction, lt sided weakness. EC dtr [facility] [phone] PCP [address] Eduar Ro. Preferred pharmacy is [facility]. Pt lives at home w her spouse. She is normally independent w ambulation and ADLs. Pt does not own any DME or receive services. Spouse provides transportation where needed. Discharge goal is to return home. Addendum: 09/09/24 at 1808 by ROSELIA FUENTES Amended: Links added.
[2024-09-09] MEDS: LoSARTan 50 MG TABLET PO SCH (20:36)
[2024-09-09] MEDS: atorVAStatin 40 MG TABLET PO SCH (20:36)
[2024-09-10] VITALS: BP 154/65; PULSE 76; RESP 20; TEMP 98
[2024-09-10 04:00] VITALS: BP 157/51; PULSE 82; RESP 20; TEMP 98.5
[2024-09-10] MEDS: hydrALAZine 20MG/ML VIAL IV PRN (04:05)
[2024-09-10] MEDS ORDERED: IOHEXOL 350 MG/ML 100ML INFUS..BTL IV ONE (06:04)
[2024-09-10 08:00] VITALS: O2SAT 97
[2024-09-10 08:16] VITALS: BP 176/72; PULSE 84; RESP 16; TEMP 98.3
[2024-09-10] MEDS: cloPIDOgrel 75MG TAB PO SCH (08:25)
[2024-09-10] MEDS: ASPIRIN 81 MG EC TAB PO SCH (08:25)
--- NOTE | 2024-09-10 09:24 | HMCIMG ---
CT ANGIO HEAD AND NECK REASON: TIA TECHNIQUE: Images were obtained from thoracic inlet through the vertex of the skull before and after bolus IV infusion of 100 ml of Isovue 350. 2D and 3D multiplanar reconstruction images were obtained in the head and neck. FINDINGS: Pre contrast images show normal-appearing brain parenchyma. Ventricles and sulci appear normal. There is no evidence of intracranial hemorrhage. Post contrast images in the neck show mild plaque in both the right and left carotid bifurcations, somewhat more pronounced on the left, there is no evidence of focal stenosis in either bifurcation. Both common and both internal carotid arteries appear otherwise unremarkable, internal carotid arteries are patent to the level [place]. There is a dominant left and a smaller right vertebral artery, both are patent to the basilar confluence. Images in the brain demonstrate normal-appearing internal carotid arteries. Anterior, middle and posterior cerebral arteries appear normal. Posterior fossa vessels are unremarkable as well. There is no evidence of aneurysm or AVM. There is no evidence of focal vessel occlusion. IMPRESSION: 1. Mild plaque in both carotid bifurcations without evidence of significant focal narrowing. 2. Otherwise unremarkable CT angiography of the head and neck. CT was performed with one or more following dose reduction techniques: automated exposure control, adjustment of the mA and kv according to patient's size, or use of a iterative reconstruction technique.
[2024-09-10 11:12] VITALS: BP 164/69; PULSE 86; RESP 18; TEMP 97.8
[2024-09-10] MEDS ORDERED: ATOR40TA69 PO (14:54)
[2024-09-10] MEDS ORDERED: AEC81 PO (14:54)
[2024-09-10] MEDS ORDERED: CLOP-31 PO (14:54)
--- NOTE | 2024-09-10 15:10 | DS ---
Discharge Summary Hospital Course Summary: This is a 63-year-old female past medical history of hypertension, diabetes mellitus type 2 who presented to the hospital secondary to abdominal pain. Patient states she has had episodes of constipation with small bowel movement yesterday. She knows states she has not had regular bowel movements at home. She denies any nausea, vomiting, shortness of breath, fever, chills. She noted that she was having pain in the left upper extremity and left lower extremity. She is not fully able to mobilize her upper or lower extremity. She was clutching her left arm when seen at bedside. She states normally she is able to walk independently and denies using any walker or cane. She denied any falls, syncopal episode. Furthermore she complained of midsternal chest pain that would radiate towards her left arm and left lower extremity. Her pain improved after she received morphine in the ED. She denied any headaches, upper or lower extremity paresthesias. She noted bilateral upper extremity tremors which is something new for her. Noted her symptoms started around 10 in the morning. Additionally she states around one week ago she was taking care of her brother who has been sick in the hospital. She does walk outside and does endorse mosquito bites. IN ED, Labs were notable for white count of 11.2, hemoglobin was 12.0, platelet count was 216k, sodium was 142, potassium was 4.7, creatinine was 1.2, blood glucose was 183, troponin was negative x1 Patient underwent a head CT which was negative. Additionally she underwent a CT abdomen pelvis which showed findings concerning for fecal impaction with constipation. Patient received Dulcolax in the ED and she was ordered fleets enema in the ED. Neurology was consulted the ED by ED provider who was agreeable to seeing the patient. Patient had battery of radiology test including MRI and CT which came back unremarkable for stroke. Dr. Ghosh evaluated the patient and indicated that patient had transient ischemic attack, recommendation is to continue with anti dual platelet therapy with [id number] mg p.o. daily and [id number] mg p.o. daily. Patient also we will continue with atorvastatin. Patient's constipation resolved, patient is having bowel movement. Patient's blood pressure is still elevated we will discharge patient when systolic blood pressure is less than 150 patient may be discharged home. Recommended to follow up with PCP in 2-3 days. Follow up with neurologist in one week. 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 [address] [place] [address] IMAGING REPORT Signed PATIENT: GIBLERT WHITEHEAD MR#: [id number] : 1960 SEX: F AGE: 63 LOCATION: [facility] ORDER 1801 STATUS: ADM IN REPORT#: [id number] SERVICE 1316 REASON: chest pain ORDERING PHYSICIAN: MARQUITA GRANADOS MD PROCEDURE: ECHO CMP - ECHO 2-D COMPLETE APPROVED REPORT EXAM: Two-dimensional and M-mode echocardiogram with Doppler and color Doppler. INDICATION ICD: Chest Pain 2D Dimensions RVDd 3.2 cm LVEF(%) 57.9 (>50%) LVED Vol(simp.) 91.7 mL IVSd 1.0 (0.7-1.1cm) FS(%) 30 % LVES Vol(simp.) 34.8 mL LVDd 4.3 (3.8-5.6cm) LA (2D) 2.9 (1.6-4.0cm) LVEF(%, simp.) 62 % PWd 1.2 (0.7-1.1cm) Ao Root(2D) 3.0 (2.0-3.7cm) LA ESV INDEX (4CH) 37.60 mL/m2 IVSs 1.6 cm LVOT diam 2.0 (1.8-2.4cm) LA ESV INDEX (2CH) 34.10 mL/m2 LVDs 3.0 (2.5-4.0cm) LA ESV INDEX (BP) 38.60 mL/m2 PWs 1.5 cm M-Mode Dimensions EPSS 0.3 cm LA (MM) 3.5 (1.6-4.0cm) Ao Root(MM) 2.9 (2.0-3.7cm) Aortic Valve AoV VTI 0.4 m Ao Mean GR 7.0 mmHg LVOT VTI 0.26 m LA (VMAX) 2.1 cm2 LA (VTI) 2.1 cm2 Mitral Valve MV E Vmax 73.2 cm/s DECEL Time 173 ms MV A Vmax 74.7 cm/s P 1/2 T 51 ms E/A ratio 1.0 MVA (PHT) 4.3 cm2 MR Max PG 32 mmHg TDI E/E' Medial 10.2 E/E' Lateral 8.4 Medial E' Peak V 7.20 cm/s Lateral E' Peak V 8.70 cm/s Tricuspid Valve TR Vmax 2.2 m/s TR Peak GR 19.3 mmHg Left Ventricle The left ventricle is normal size. There is normal LV segmental wall motion. There is normal left ventricular wall thickness. The LVEF is > 55%. The left ventricular diastolic function is normal. Right Ventricle The right ventricle is normal size. The right ventricular systolic function is normal. Atria The left atrium size is normal. The right atrium size is normal. Aortic Valve Aortic valve is trileaflet and opens well. The aortic valve is mildly thickened. No aortic regurgitation is present. There is no aortic valvular stenosis. Mitral Valve The mitral valve is normal in structure. There is trace mitral regurgitation. There is no mitral valve stenosis. Tricuspid Valve The tricuspid valve is normal in structure. There is trace tricuspid valve regurgitation noted. Pulmonic Valve The pulmonary valve is normal in structure. There is no pulmonic valvular regurgitation. Great Vessels The aortic root is normal in size. The IVC is normal in size and collapses >50% with inspiration. Pericardium There is no pericardial effusion. Conclusion The LVEF is > 55%. There is normal left ventricular wall thickness. There is normal LV segmental wall motion. The aortic root is normal in size. There is no pericardial effusion. DICTATED BY: JOSH SCHRADER MD DATE: 09/09/24 1216 ELECTRONICALLY SIGNED BY: JOSH SCHRADER MD DATE: 09/09/[address] [address] IMAGING REPORT Signed PATIENT: GILBERT WHITEHEAD MR#: [id number] : 1960 SEX: F AGE: 63 LOCATION: [facility] ORDER 1421 STATUS: ADM IN REPORT#: [id number] SERVICE 1420 REASON: TIA ORDERING PHYSICIAN: JENNIFER ESPINOZA MD PROCEDURE: CTA [facility] - CT ANGIO HEAD AND NECK CT ANGIO HEAD AND NECK REASON: TIA TECHNIQUE: Images were obtained from thoracic inlet through the vertex of the skull before and after bolus IV infusion of 100 ml of Isovue 350. 2D and 3D multiplanar reconstruction images were obtained in the head and neck. FINDINGS: Pre contrast images show normal-appearing brain parenchyma. Ventricles and sulci appear normal. There is no evidence of intracranial hemorrhage. Post contrast images in the neck show mild plaque in both the right and left carotid bifurcations, somewhat more pronounced on the left, there is no evidence of focal stenosis in either bifurcation. Both common and both internal carotid arteries appear otherwise unremarkable, internal carotid arteries are patent to the level [place]. There is a dominant left and a smaller right vertebral artery, both are patent to the basilar confluence. Images in the brain demonstrate normal-appearing internal carotid arteries. Anterior, middle and posterior cerebral arteries appear normal. Posterior fossa vessels are unremarkable as well. There is no evidence of aneurysm or AVM. There is no evidence of focal vessel occlusion. IMPRESSION: 1. Mild plaque in both carotid bifurcations without evidence of significant focal narrowing. 2. Otherwise unremarkable CT angiography of the head and neck. CT was performed with one or more following dose reduction techniques: automated exposure control, adjustment of the mA and kv according to patient's size, or use of a iterative reconstruction technique. DICTATED BY: SWATI GROVES MD DATE: 09/10/24917 ELECTRONICALLY SIGNED BY: SWATI GROVES MD DATE: 09/10/24923 [place] [address] IMAGING REPORT Signed PATIENT: GILBERT WHITEHEAD MR#: [id number] : 1960 SEX: F AGE: 63 LOCATION: [facility] ORDER 57 STATUS: ADM IN REPORT#: [id number] SERVICE 50 REASON: assess for coarotid stenosis ORDERING PHYSICIAN: MARQUITA GRANADOS MD PROCEDURE: CAROTID - US CAROTID DUPLEX US CAROTID DUPLEX HISTORY: assess for carotid stenosis TECHNIQUE: Real time color doppler ultrasound examination of both carotid systems was performed using B mode, color flow and spectral analysis. FINDINGS: Right Extracranial Circulation: CCA peak systolic velocity 72 cm/sec ICA peak systolic velocity of 136 cm/sec ECA peak systolic velocity of 173 cm/sec Ratio ICA/CCA = 1.9 Vertebral artery 63 cm/sec Left Extracranial Circulation: CCA peak systolic velocity 87 cm/sec ICA peak systolic velocity of 85 cm/sec ECA peak systolic velocity of 123 cm/sec Ratio ICA/CCA = 1 Vertebral artery 74 cm/sec The vertebral arteries demonstrate antegrade flow. IMPRESSION: 50-69% stenosis in the right ICA. DICTATED BY: KAVITA SMITH MD DATE: 09/08/242038 ELECTRONICALLY SIGNED BY: KAVITA SMITH MD DATE: 09/08/242042 [place] [address] [place] [id number] IMAGING REPORT Signed PATIENT: GILBERT WHITEHEAD MR#: [id number] : 1960 SEX: F AGE: 63 LOCATION: [facility] ORDER 03 STATUS: ADM IN REPORT#: [id number] SERVICE 02 REASON: rule out frcature ORDERING PHYSICIAN: MARQUITA GRANADOS MD PROCEDURE: SHOL 2V LT - SHOULDER COMP 2+VWS LT SHOULDER COMP 2+VWS LT INDICATION: Pain TECHNIQUE: SHOULDER COMP 2+VWS LT. FINDINGS/IMPRESSION: No displaced fracture or dislocation is seen. Correlate clinically. There is mild soft tissue swelling Mild degenerative changes are seen. DICTATED BY: KAVITA SMITH MD DATE: 09/08/241948 ELECTRONICALLY SIGNED BY: KAVITA SMITH MD DATE: 09/08/241951 [facility] [address] [place] [id number] IMAGING REPORT Signed PATIENT: GILBERT WHITEHEAD MR#: [id number] : 1960 SEX: F AGE: 63 LOCATION: [facility] ORDER 1801 STATUS: ADM IN [facility] REPORT#: [id number] SERVICE 1755 REASON: Please rule out stroke ORDERING PHYSICIAN: MARQUITA GRANADOS MD PROCEDURE: BRAIN WO - MR BRAIN WO CON MR BRAIN WO CON HISTORY: Please rule out stroke TECHNIQUE: Multiplanar multisequence MRI of the brain was performed without contrast. FINDINGS: No restricted diffusion seen to suggest acute infarct. Cerebral atrophy seen. Nonspecific periventricular and subcortical white matters changes are noted which may represent small vessel ischemic disease, demyelination, inflammation or a combination of these factors. No midline shift or herniation. No extra axial collection. The visualized paranasal sinuses and mastoid air cells are normally aerated. IMPRESSION: Mild cerebral atrophy. No acute intracranial bleed is seen. Scattered nonspecific white matter changes DICTATED BY: KAVITA SMITH MD DATE: 09/08/242106 ELECTRONICALLY SIGNED BY: KAVITA SMITH MD DATE: 09/08/242110 [place] [address] IMAGING REPORT Signed PATIENT: GILBERT WHITEHEAD MR#: [id number] : 1960 SEX: F AGE: 63 LOCATION: ED ORDER 1553 STATUS: REG ER REPORT#: [id number] SERVICE 1552 REASON: TIA ORDERING PHYSICIAN: NILTON WALTER MD PROCEDURE: HEAD WO - CT HEAD/BRAIN W/O CONTRAST CT HEAD/BRAIN W/O CONTRAST INDICATION: TIA TECHNIQUE: CT HEAD/BRAIN W/O CONTRAST. CT was performed with one or more of the following dose reduction techniques: Automated exposure control, adjustment of the mA and/or kV according to the patient's size, or use of the iterative reconstruction technique. Comparison: None FINDINGS: The ventricles and extra ventricular CSF spaces are within normal limits. No mass effect, midline shift or herniation. No extra axial collection. No acute intracranial bleed. The visualized paranasal sinuses and mastoid air cells are normally aerated. IMPRESSION: No acute intracranial findings. DICTATED BY: KAVITA SMITH MD DATE: 09/08/241651 ELECTRONICALLY SIGNED BY: KAVITA SMITH MD DATE: 09/08/241655 [facility] [address] [place] [address] IMAGING REPORT Signed PATIENT: GILBERT WHITEHEAD MR#: [id number] : 1960 SEX: F AGE: 63 LOCATION: [facility] ORDER 135 STATUS: REG ER REPORT#: [id number] SERVICE 49 REASON: severe llq p ORDERING PHYSICIAN: STEVE BOLDEN MD PROCEDURE: ABD PEL WO - CT ABDOMEN/PELVIS W/O CONTRAST Exam Type: CT ABDOMEN/PELVIS W/O CONTRAST Clinical Information: severe llq p Comparison: None CT Dose Index (CTDI): 10.20 mGy Dose Length Product (DLP): 530.00 total mGy-cm PROTOCOL: Routine noncontrast helical scanning of the abdomen and pelvis was performed at 5mm collimation. Findings: Nonobstructing right nephrolithiasis. Kidneys otherwise unremarkable. The lung bases are clear. Right middle lobe benign calcified granuloma seen. The stomach is unremarkable. It shows no wall thickening. No gross ulceration is seen. It is not overly distended. There are no surrounding inflammatory changes. No wall lesions are identified to suggest cancer. The spleen is unremarkable. It is not enlarged. The pancreas shows normal anatomy. It is not fatty replaced. It shows no lesions. The pancreatic duct is not dilated. The gallbladder is unremarkable. It shows no cholelithiasis. The gallbladder wall is normal in thickness. There is no pericholecystic fluid. The is no acute or chronic inflammation noted. The adrenal glands are unremarkable. There is no enlargement. No lesions are noted. The liver is unremarkable. It shows no focal masses. The appendix is unremarkable. It shows no evidence of inflammation. No appendicolith is seen. The small bowel is unremarkable. There is no evidence of dilatation to suggest obstruction. No evidence of adynamic ileus is seen. There is no small bowel wall thickening to suggest enteritis. Abundant fecal matter is noted throughout the colon consistent with constipation. The urinary bladder is unremarkable. There is no wall thickening to suggest tumor or inflammation. There are no intraluminal calculi. There are no diverticula. There is no evidence of chronic bladder outlet obstruction. There is no evidence of urinary bladder distention to suggest urinary retention. The other pelvic structures are unremarkable. The bony and vascular structures are unremarkable for the patient's age. IMPRESSION: Constipation. This study was performed using dose reduction techniques to include automated exposure control and/or adjustment of the mA and/or kV according to patient size. DICTATED BY: BREA TENA MD DATE: 09/08/24 144 ELECTRONICALLY SIGNED BY: BREA TENA MD DATE: 09/08/241447 [address] [address] IMAGING REPORT Signed PATIENT: GILBERT WHITEHEAD MR#: [id number] : 1960 SEX: F AGE: 63 LOCATION: [facility] ORDER STATUS: [facility] REPORT#: [id number] SERVICE 1225 REASON: CHEST PAIN ORDERING PHYSICIAN: STEVE BOLDEN MD PROCEDURE: CXR1VW - CHEST 1VW Exam Type: CHEST 1VW Clinical Information: CHEST PAIN Comparison: None Findings: The lungs are clear of infiltrates. The heart is normal in size. The bony and soft tissue structures of the chest are unremarkable. Impression: Clear lungs. DICTATED BY: BREA TENA MD DATE: 09/08/24 130 ELECTRONICALLY SIGNED BY: BREA TENA MD DATE: 09/08/24 130 Assessment/Plan: Discharge Diagnoses: Constipation with fecal impaction POA - resolved Bilateral upper extremity tremors - resolved Left upper and lower extremity weakness POA type 2 with associated hyperglycemia Chest pain ACS ruled out- chest pain secondary to hypertensive urgency Hypertensive urgency, POA Debility Mild Leukocytosis Acute kidney injury Diabetes mellitus Hypertension ASSESSMENT: Constipation with fecal impaction POA Bilateral upper extremity tremors Left upper and lower extremity weakness POA type 2 with associated hyperglycemia Chest pain ACS rule out Debility Mild Leukocytosis Acute kidney injury Diabetes mellitus Hypertension Discharge Instructions: Follow-up with PCP in 2-3 days Follow-up with neurologist in one week Home Medications: Reported Medications Metformin HCl (Metformin HCl) 500 Mg Tablet, 1 TAB PO BID for 30 Days, #60 TAB 0 Refills 09/09/24 Rosuvastatin Calcium (Rosuvastatin Calcium) 10 Mg Tablet, 10 MG PO DAILY, TAB 09/09/24 Losartan Potassium (Losartan Potassium) 50 Mg Tablet, 1 TAB PO BID for 30 Days, #30 TAB 0 Refills 09/09/24 New Medications: Aspirin (Aspirin 81 Mg Ectab) 81 Mg Ectab 81 MG PO DAILY, #30 TAB.EC 0 Refills Atorvastatin Calcium (Lipitor) 40 Mg Tablet 40 MG PO HS, #30 TAB 0 Refills Clopidogrel Bisulfate (Plavix) 75 Mg Tablet 75 MG PO DAILY, #30 TAB 0 Refills Continued Medications: Losartan Potassium (Losartan Potassium) 50 Mg Tablet 1 TAB PO BID for 30 Days, #30 TAB 0 Refills Metformin HCl (Metformin HCl) 500 Mg Tablet 1 TAB PO BID for 30 Days, #60 TAB 0 Refills Discontinued Medications: Rosuvastatin Calcium (Rosuvastatin Calcium) 10 Mg Tablet 10 MG PO DAILY, TAB Time spent arranging discharge: 31-60 minutes ATTESTATION BY PHYSICIAN I have seen and examined the patient. I reviewed the documentation, medical decision making, and treatment plan as noted by the mid-level provider above. I agree with the findings and plan of care. DAVIN FINN MD, [facility] Sep 10, 2024 15:10
[2024-09-10 16:34] VITALS: BP 141/55; PULSE 93; RESP 18; TEMP 98.4
== END 2024-09-10 18:30 | disposition home or self-care (01) | DRG 389 ==
LOC: EDH 12:19 → EDHIP 17:55 → 4DH 23:08
PROVIDERS: ADMIT Internal Medicine; ATTEND Internal Medicine
DX: K56.41 Fecal impaction (principal); G45.9 Transient cerebral ischemic attack, unspecified; N17.9 Acute kidney failure, unspecified; I16.0 Hypertensive urgency; R25.1 Tremor, unspecified; E11.65 Type 2 diabetes mellitus with hyperglycemia; I10 Essential (primary) hypertension; E78.5 Hyperlipidemia, unspecified; E66.9 Obesity, unspecified; D72.829 Elevated white blood cell count, unspecified; R53.81 Other malaise; M79.602 Pain in left arm; Z79.899 Other long term (current) drug therapy; Z68.26 Body mass index [BMI] 26.0-26.9, adult
CPT/HCPCS: 36415; 70450; 70496; 70498; 70551; 71045; 73030; 74176; 80048; 80305; 81001; 82270; 82550; 83036; 83880; 84145; 84443; 84484; 85025; 86140; 87040; 93005; 93306; 93880; G0378; J0360; J0696; J2270; J3490; Q9967